=== PATIENT | male | born 2005 | race Caucasian/White ===

== ENCOUNTER 2023-07-01 19:43 | Emergency (ER) | payer SELFPAY ==
[2023-07-01 20:51] LABS: Bacteria/HPF None Seen HPF (None Seen); Bilirubin Negative (Negative); Blood, Urine Negative (Negative); CAUTI Indications for Culture Dysuria,urgency,freq; Clarity Clear (Clear); Glucose, Urine (Dipstick) Normal (Negative); Ketone, Urine Negative (Negative); Leukocyte Negative Leu/uL (Negative); Nitrite Negative (Negative); Protein, Urine (Dipstick) Negative (Neg-Trace); RBC/HPF 0-3 HPF (0-3); Specific Gravity, Urine 1.025 (1.002-1.036); Squamous Epithelial None Seen HPF (0-3); Urobilinogen Normal mg/dL (Less than 2)
[2023-07-01 20:53] LABS: Urine Culture Reflex No No
[2023-07-01 20:59] LABS: Amphetamine Not Detected (NotDetected); Barbiturates Screen Not Detected (NotDetected); Benzodiazepine Screen Not Detected (NotDetected); Cocaine Metabolite Screen Not Detected (NotDetected); Methadone Not Detected (NotDetected); Methamphetamine Not Detected (NotDetected); Opiate Screen Not Detected (NotDetected); Oxycodone Screen Not Detected (NotDetected); Phencyclidine (PCP) Not Detected (NotDetected); THC/Cannabinoid Screen Detected (NotDetected); Tricyclic Screen Not Detected (NotDetected)
[2023-07-01 21:05] LABS: #Eosinphils 0.1 thou/uL (0.0-0.7); #Monocytes 0.4 thou/uL (0.11-0.59); #Neutrophils 5.4 thou/uL (1.40-6.50); %Basophils 0.2 % (0.0-1.0); %Eosinophils 0.6 % (0.0-10.0); %Lymphocytes 28.9 % (28.0-48.0); %Monocytes 5.1 % (0.0-4.0); %Neutrophils 65.1 % (31.0-61.0); Hematocrit 44.1 % (42.0-52.0); Mean Corpuscular Hemoglobin 29.9 pg (25.0-35.0); Mean Platelet Volume 9.6 fL (7.4-10.4); Platelet Count 181 10x3/uL (130-400); RBC Distribution Width 13.6 % (11.5-14.5); Red Blood Cell (RBC) Count 5.01 mill/uL (4.00-5.20); White Blood Cell (WBC) Count 8.3 10x3/uL (4.8-10.8)
[2023-07-01 21:28] LABS: ALT (SGPT) 19 U/L (8-55); AST (SGOT) 21 U/L (10-45); Albumin 4.5 g/dL (3.5-5.0); Alkaline Phosphatase 70 U/L (50-130); Anion Gap 14 mmol/L (10-20); BUN (Urea Nitrogen) 16 mg/dL (8.4-21.0); Bilirubin, Total 0.5 mg/dL (0.2-1.2); Calc. Creatinine Clearance 0 mL/min (70-130); Calcium 10.2 mg/dL (7.8-10.44); Carbon Dioxide 24 mmol/L (22-29); Chloride 105 mmol/L (98-107); Estimated GFR 114; Globulin 3.4 g/dL (2.4-3.5); Glucose 81 mg/dL (70-105); Potassium 4.2 mmol/L (3.5-5.1); Protein, Total 7.9 g/dL (6.0-8.3); Sodium 139 mmol/L (136-145)
[2023-07-01 21:30] LABS: Acetaminophen Less than 10 mcg/mL (10.0-30.0); Alcohol Less than 10.0 mg/dL (Less than 10); Salicylate Less than 8.0 mg/dL (15.0-30.0)
== END 2023-07-01 22:29 | disposition home or self-care (01) ==
LOC: ERS 19:43
DX: F43.20 Adjustment disorder, unspecified (principal)
CPT/HCPCS: 36415; 80053; 80306; 80307; 81001; 84443; 85025; 99285